=== PATIENT | female | born 1970 | race Caucasian/White ===

== ENCOUNTER 2017-08-01 08:28 | Outpatient (CLI) | payer OTHER | END 2017-08-01 08:48 | disposition home or self-care (01) | LOC: SONOGRAMA 08:28 | DX: N92.5 Other specified irregular menstruation (principal); N84.0 Polyp of corpus uteri ==

== ENCOUNTER 2017-08-07 15:37 | Emergency (ER) | payer OTHER ==
[~2017-08-07] VITALS: Ht 154.9 cm; Wt 63.5 kg
[2017-08-07] MEDS ORDERED: ZOLOFT20 MG/1 ML (16:14)
[2017-08-07] MEDS ORDERED: CLONAZEPAM1 MG (16:14)
[2017-08-07] MEDS ORDERED: PROVERA2.5 MG PO (20:07)
[2017-08-07] MEDS ORDERED: IRON1TAB4 PO (20:07)
== END 2017-08-07 20:21 | disposition home or self-care (01) ==
LOC: ER 15:37
DX: N93.8 Other specified abnormal uterine and vaginal bleeding (principal); R10.2 Pelvic and perineal pain

== ENCOUNTER 2018-05-19 11:30 | Inpatient (IN) | payer OTHER ==
[~2018-05-19] VITALS: Ht 154.9 cm; Wt 68.0 kg
[~2018-05-19 11:30] MED LIST: CLONAZEPAM1 MG; IRON1TAB4 PO; PROVERA2.5 MG PO; ZOLOFT20 MG/1 ML
[2018-05-23] MEDS ORDERED: CODE1TAB37 PO (09:20)
== END 2018-05-23 13:08 | DRG 743 ==
LOC: O/R 05-22 09:13 → RECOVERY 05-22 10:00 → OB/GYN 05-22 22:24
PROVIDERS: Obstetrics & Gynecology
PROC: 0UT74ZZ Resection of Bilateral Fallopian Tubes, Percutaneous Endoscopic Approach (ICD-10-PCS; 2018-05-22)
PROC: 0UT94ZZ Resection of Uterus, Percutaneous Endoscopic Approach (ICD-10-PCS; 2018-05-22)
PROC: 0USG4ZZ Reposition Vagina, Percutaneous Endoscopic Approach (ICD-10-PCS; 2018-05-22)
PROC: 0UQF4ZZ Repair Cul-de-sac, Percutaneous Endoscopic Approach (ICD-10-PCS; 2018-05-22)
PROC: 0DNW4ZZ Release Peritoneum, Percutaneous Endoscopic Approach (ICD-10-PCS; 2018-05-22)
PROC: 0TJB8ZZ Inspection of Bladder, Via Natural or Artificial Opening Endoscopic (ICD-10-PCS; 2018-05-22)
PROC: 0UT24ZZ Resection of Bilateral Ovaries, Percutaneous Endoscopic Approach (ICD-10-PCS; principal; 2018-05-22 10:00)
DX: D25.1 Intramural leiomyoma of uterus (principal); N92.0 Excessive and frequent menstruation with regular cycle; N81.11 Cystocele, midline; K66.0 Peritoneal adhesions (postprocedural) (postinfection)